=== PATIENT | male | born 1995 | race Native Hawaiian/Other Pacific Islander ===

== ENCOUNTER 2021-10-30 09:45 | Outpatient (CLI) | payer OTHER ==
[~2021-10-30] VITALS: Ht 167.6 cm; Wt 81.6 kg
[2021-10-30 10:06] VITALS: BP 112/68; TEMP 98.2
[2021-10-30 11:00] VITALS: BP 109/57; TEMP 98.5
[2021-10-30 11:15] VITALS: BP 118/62; TEMP 98.7
[2021-10-30 12:15] VITALS: BP 112/78; TEMP 98.1
== END 2021-10-30 19:13 | disposition home or self-care (01) ==
LOC: INF 09:45
PROVIDERS: ATTEND Family Medicine
DX: Z23 Encounter for immunization (principal); U07.1 COVID-19
CPT/HCPCS: 96374; Q0222

== ENCOUNTER → 2022-03-12 | Outpatient (CLI) | payer OTHER | LOC: RAD 08:48 | PROVIDERS: ATTEND Nurse Practitioner Primary Care | DX: R05.9 Cough, unspecified (principal) ==

== ENCOUNTER 2023-02-25 08:34 | Outpatient (CLI) | payer BC | END 2023-02-25 18:57 | disposition home or self-care (01) | LOC: US 08:34 | PROVIDERS: ATTEND Family Medicine | DX: R10.12 Left upper quadrant pain (principal) ==